=== PATIENT | female | born 1990 | race Caucasian/White ===

== ENCOUNTER 2019-04-05 11:31 | Day surgery (SDC) | payer BC ==
[~2019-04-05] VITALS: Ht 170.2 cm; Wt 143.3 kg
[2019-04-05] VITALS (10 sets, daily range): BP systolic 112–158; BP diastolic 60–84; PULSE 66–91; TEMP 97.3–98
[2019-04-05] MEDS ORDERED: NORCO 325 MG-51 TAB PO (16:16)
[2019-04-05] MEDS ORDERED: MOTRIN 600600 MG/TAB PO (16:17)
[2019-04-05] MEDS ORDERED: OMNICEF 300MG300 MG PO (16:34)
[2019-04-05] MEDS ORDERED: FLAGYL500 MG PO (16:34)
[2019-04-05] MEDS ORDERED: AMOXICILLIN 8751 TAB PO (16:40)
--- NOTE | 2019-04-05 16:45 | NUR ---
arrived on unit per bed from PACU, awake and alert but drowsy, IV infusing per dial-a-flow at 125ml/hr, O2 off and O2 sat 96%, SCDs on bilaterally, abdo with 5 robotic sites with moran set and are CD&I, denies needs, mother at bedside
--- NOTE | 2019-04-05 17:00 | NUR ---
sleeping between checks, mother at bedside, and she arouses her when she starts to snore and O2 sats go down to high 80s, then O2 sats rebound, full assessment completed, see interventions for further info
--- NOTE | 2019-04-05 17:15 | NUR ---
awakened and took sips of water and po antibiotic and tolerated well
--- NOTE | 2019-04-05 18:00 | NUR ---
sleeping between checks
--- NOTE | 2019-04-05 18:51 | NUR ---
bedside shift report given to IRINEO Luciano
[2019-04-06 00:13] VITALS: BP 130/66; PULSE 82; TEMP 97.8
--- NOTE | 2019-04-06 01:22 | NUR ---
PATIENT DOING WELL THROUGHOUT NIGHT. X 5 LAP SITES CLOSED WITH SWIFTSET, CDI AND OPEN TO AIR, SLIGHT REDNESS NOTED. PATIENT DROWSY. ALERT AND ORIENTED. FAMILY AT BEDSIDE. PATIENT AMBULATED TO BATHROOM WITH STANDBY ASSIST AND VOIDED. PRN NORCO GIVEN FOR 7/10 MODERATE PAIN. DENIES NAUSEA. L HAND IV SALINE LOCKED. NO FURTHER NEEDS AT THIS TIME. WILL CONTINUE TO MONITOR.
[2019-04-06 04:39] VITALS: BP 121/61; PULSE 79; TEMP 97.9
--- NOTE | 2019-04-06 07:49 | NUR ---
Patient sitting up on edge of bed eating breakfast. Alert and oriented x3. Shift assessment complete. Lap sites x 5 with edges well approximated. INT to left hand. Patient states she is having sharp pain to LLQ, 5/10, medications given per orders. Denies further needs at this time. Will continue to monitor.
[2019-04-06 08:36] VITALS: BP 149/83; PULSE 71; TEMP 97.8
--- NOTE | 2019-04-06 10:21 | NUR ---
Initial visit; Patient thanked [employer] for looking in on her and offering spiritual care.
--- NOTE | 2019-04-06 11:22 | NUR ---
[employer]man [employer] met with patient to discuss discharge planning. Patient lives in [place] with her mom, Niyah (ph#[phone]) and is employed as a RN at [employer]. Patient sees Dr. Lane in [place] for primary care and obtains medications from [facility]. Patient does not use any DME and is independent with [facility]LS. Patient does not have Advance Directives in place. Patient to return home upon discharge.
[2019-04-06 12:24] VITALS: BP 148/87; PULSE 70; TEMP 97.7
[2019-04-06] MEDS ORDERED: NEURONTIN100 MG/CAP PO (12:32)
--- NOTE | 2019-04-06 14:40 | NUR ---
Discharge education provided to patient. Educated on signs and symptoms of infection and all new meds. Patient educated on maintaininig follow up appointment and when to call provider. Denies pain or further needs at this time. INT discontinued, catheter tip intact. Patient out by wheelchair with surgical staff and family.
== END 2019-04-06 14:45 | disposition home or self-care (01) ==
LOC: SDCO 11:31 → SURG 17:13 → SDCO 04-06 14:45
DX: K80.10 Calculus of gallbladder with chronic cholecystitis without obstruction (principal); E66.9 Obesity, unspecified; Z68.42 Body mass index [BMI] 45.0-49.9, adult; Z88.1 Allergy status to other antibiotic agents; Z88.0 Allergy status to penicillin
CPT/HCPCS: OP; J0690; J1100; J1885; J2250; J2405; J2704; J2765; J3010; J7120

== ENCOUNTER → 2019-10-11 | Outpatient (CLI) | payer BC ==
[~2019-10-11] MED LIST: AMOXICILLIN 8751 TAB PO; FLAGYL500 MG PO; MOTRIN 600600 MG/TAB PO; NEURONTIN100 MG/CAP PO; NORCO 325 MG-51 TAB PO; OMNICEF 300MG300 MG PO
== END ==
LOC: COL.RAD 13:51
DX: E04.9 Nontoxic goiter, unspecified (principal)

== ENCOUNTER → 2020-01-17 | Outpatient (CLI) | payer BC | LOC: ZCOL.LAB 13:48 | DX: R07.9 Chest pain, unspecified (principal); R00.2 Palpitations ==

== ENCOUNTER 2020-04-17 07:16 | Outpatient (CLI) | payer BC ==
[~2020-04-17] VITALS: Ht 170.2 cm; Wt 140.9 kg
[2020-04-17] MEDS ORDERED: TOPROL XL 50MG50 MG PO (07:39)
[2020-04-17] MEDS ORDERED: D3-5050000 IU PO (07:40)
[2020-04-17] MEDS ORDERED: WELLBUTRIN XL150 MG PO (07:40)
[2020-04-17] MEDS ORDERED: GLUCOPHAGE XR500 M1 PO (07:41)
[2020-04-17 07:43] VITALS: BP 136/76; PULSE 77; TEMP 98.1
--- NOTE | 2020-04-17 11:16 | NUR ---
DC instructions reviewed, and pt expresses understanding. INT DC'd with catheter intact, and bleeding controlled at site. Pt ambulates out, escorted to elevator with personal belongings, with steady gait.
== END 2020-04-17 11:16 | disposition home or self-care (01) ==
LOC: COL.CAR 07:16
DX: R00.2 Palpitations (principal); F32.9 Major depressive disorder, single episode, unspecified; F41.1 Generalized anxiety disorder; F43.10 Post-traumatic stress disorder, unspecified; E66.01 Morbid (severe) obesity due to excess calories; J45.40 Moderate persistent asthma, uncomplicated; Z88.0 Allergy status to penicillin; Z88.2 Allergy status to sulfonamides; Z88.1 Allergy status to other antibiotic agents; Z91.018 Allergy to other foods

== ENCOUNTER 2021-11-04 21:51 | Emergency (ER) | payer BC ==
[~2021-11-04] VITALS: Ht 167.6 cm; Wt 139.3 kg
[~2021-11-04 21:51] MED LIST changes: +D3-5050000 IU PO; +GLUCOPHAGE XR500 M1 PO; +TOPROL XL 50MG50 MG PO; +WELLBUTRIN XL150 MG PO
[2021-11-04] MEDS ORDERED: PREDNISONE20 MG PO (23:01)
[2021-11-04 23:30] LABS: BASO % 0.4 % (0.0-2.0); EOS # 0.1 K/mm3 (0.0-0.7); EOS % 1.3 % (0.0-4.0); GRAN # 5.6 K/mm3 (1.4-6.5); HEMATOCRIT 39.9 % (37.0-47.0); HEMOGLOBIN 13.6 g/dl (12.5-16.0); LYMPH # 3.4 K/mm3 (1.2-3.4); LYMPH % 35.7 % (20.0-51.0); MEAN CELL VOLUME 89 fl (80.0-100.0); MEAN CORPUSCULAR HEMOGLOBIN 30 pg (27-31); MEAN CORPUSCULAR HGB CONC 34 g/dl (33.0-37.0); MEAN PLATELET VOLUME 11.3 fl (7.4-10.4); MONO # 0.4 K/mm3 (0.1-0.6); MONO % 4.4 % (1.7-9.3); PLATELET COUNT 255 K/mm3 (130-400); RED BLOOD COUNT 4.48 M/mm3 (4.10-5.30); REDCELL DISTRIBUTION WIDTH-CV 11.9 % (11.5-14.5)
[2021-11-04 23:37] LABS: ALANINE AMINOTRANSFERASE 14 U/L (0-55); ALBUMIN 3.7 gm/dL (3.5-5.0); ALKALINE PHOSPHATASE 81 U/L (40-150); ANION GAP 11 mmol/L (7-16); AST,SGOT 14 U/L (5-34); BILIRUBIN,TOTAL 0.2 mg/dL (0.2-1.2); BLOOD UREA NITROGEN 14 mg/dL (7-19); CALCIUM 9.1 mg/dL (8.4-10.2); CARBON DIOXIDE 21 mmol/L (22-29); CHLORIDE 109 mmol/L (98-107); CREATININE, serum 1.11 mg/dL (0.57-1.11); GLUCOSE 105 mg/dL (70-99); POTASSIUM 3.5 mmol/L (3.5-4.5); SODIUM 141 mmol/L (136-145); TOTAL PROTEIN 7.4 gm/dL (6.2-8.1)
[2021-11-04 23:43] LABS: TROPONIN-I < 0.010 ng/mL (0.00-0.033)
[2021-11-05 02:16] VITALS: BP 125/73; PULSE 67; TEMP 97.8
== END 2021-11-05 02:16 | disposition home or self-care (01) ==
LOC: COL.ER 21:51
PROVIDERS: Personal Emergency Response Attendant
DX: T78.40XA Allergy, unspecified, initial encounter (principal); R79.1 Abnormal coagulation profile; E66.01 Morbid (severe) obesity due to excess calories; Z68.42 Body mass index [BMI] 45.0-49.9, adult
CPT/HCPCS: J1200; J2930; Q9967

== ENCOUNTER → 2022-01-21 | Outpatient (CLI) | payer BC ==
[~2022-01-21] MED LIST changes: +PREDNISONE20 MG PO
== END ==
LOC: MC.RAD 07:00
DX: N64.4 Mastodynia (principal)

== ENCOUNTER → 2022-01-22 | Outpatient (CLI) | payer BC | LOC: MC.RAD 12:57 | DX: N64.4 Mastodynia (principal) ==